=== PATIENT | male | born 1965 | race Caucasian/White ===

== ENCOUNTER 2018-03-07 20:00 | Inpatient (IN) | payer MEDICAID ==
[~2018-03-07] VITALS: Ht 165.1 cm; Wt 65.5 kg
--- NOTE | ~2018-03-07 | EC ---
PATIENT:MCKAYLA LEE JR DATE OF SERVICE: 03/07/18 SEX: M MEDICAL RECORD: [id number] DATE OF : [birth year] LOCATION:[facility] [facility] AGE OF PATIENT: 52 ADMISSION DATE: 03/07/18 REFERRING PHYSICIAN: INTERPRETING PHYSICIAN: MAURIZIO MENSAH MD ECHOCARDIOGRAM REPORT ECHO CHARGES 4 ECHO COMPLETE Date: 03/09 CLINICAL DIAGNOSIS: CHF HX OF ICD ECHOCARDIOGRAPHIC MEASUREMENTS (adult normal given) AC root (d.<3.7cm) 4.1 cm LV Septum d (<1.2 cm> 1.4 cm Valve Excursion 1.9 cm LV Septum (systole) 1.6 cm Left Atria (s.<4.0cm> 3.0 cm LVPW d(<1.2cm) 1.4 cm RV (d.<2.3cm) 7.9 cm LVPW (sytole) 1.6 cm LV diastole(<5.6CM) 3.6 cm MV E-F(>70mm/sec) cm LV systole 2.1 cm LVOT Diameter 1.8 cm MV exc.(>10mm) cm Est.ejection fraction (50-75%) % DOPPLER: LVIT cm/sec A 45.0 cm/sec E 56.0 cm/sec LA cm/sec RVSP 53 mmHg LVOT cm/sec AOP1/2T m/s Asc. 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 Mensah TAPE# PACS Pericardial Effusion Y DATE OF SERVICE: 03/09/2018 ECHOCARDIOGRAM FINDINGS: 1. Left ventricular chamber size is within normal limits. Left ventricular systolic function is normal. Overall ejection fraction estimated at 50% to 55%. 2. The left atrium is mildly dilated at 4.2 cm. Right atrium and right ventricular chamber sizes are severely dilated. 3. Valvular structures have normal structure and motion. ECHOCARDIOGRAM REPORT [id number] MCKAYLA LEE JR 4. Doppler interrogation reveals mild mitral regurgitation, severe tricuspid regurgitation. No other valvular insufficiency or stenosis. Pulmonary systolic pressure is elevated estimated at 53 mmHg. 5. Small pericardial effusion is present. This is not hemodynamically significant. No evidence of left ventricular thrombus. TRANSINT:[id number] Voice Confirmation ID: [id number] DOCUMENT ID: [id number] MAURIZIO MENSAH MD at 0956 CC: [id number] DICTATION DATE: 03/09/18 1336 CLINICAL RESEARCH COORDINATOR: 03/09/18 1828 ADM IN [facility] [address] [place] [address]
[2018-03-07 19:00] VITALS: BP 102/66
[2018-03-07] MEDS ORDERED: FLORINEF 0.1 M0.1 MG PO (20:34)
[2018-03-07] MEDS ORDERED: K-DUR20 MEQ PO (20:35)
[2018-03-07] MEDS ORDERED: LASIX20 MG PO (20:36)
[2018-03-07] MEDS ORDERED: BAYER CHEWABLE81 MG PO (20:36)
[2018-03-07] MEDS ORDERED: COREG12.5 MG PO (21:08)
[2018-03-07] MEDS ORDERED: FUROSEMIDE40 MG PO (21:08)
[2018-03-07] MEDS ORDERED: BUMEX2 MG PO (21:08)
[2018-03-07] MEDS ORDERED: ATARAX 25 MG TA25 MG PO (21:09)
[2018-03-07] MEDS ORDERED: SYNTHROID25 MCG PO (21:09)
[2018-03-07] MEDS ORDERED: ALDACTONE25 MG PO (21:10)
[2018-03-07] MEDS ORDERED: MAG-OX 400 MG400 MG PO (21:10)
[2018-03-07] MEDS ORDERED: CARAFATE1 G PO (21:11)
[2018-03-07] MEDS ORDERED: AZULFIDINE500 MG PO (21:11)
[2018-03-07] MEDS ORDERED: CEFTRIAXONE1 G/VIAL IM (21:12)
[2018-03-07] MEDS ORDERED: ACETAMINOPHEN500 M1 PO (21:13)
[2018-03-07] MEDS ORDERED: COLACE100 MG PO (21:14)
[2018-03-07] MEDS ORDERED: MYLANTA II SUSP30 ML PO (21:14)
[2018-03-07] MEDS ORDERED: LISINOPRIL10 MG PO (21:15)
[2018-03-07] MEDS ORDERED: METOLAZONE5 MG PO (21:16)
[2018-03-07] MEDS ORDERED: MILK OF MAGNESI30 ML PO (21:16)
[2018-03-07] MEDS ORDERED: PROAIR HFA8.5 GM INH (21:33)
[2018-03-08] VITALS (7 sets, daily range): BP systolic 94–117; BP diastolic 42–84; BMI 31.1
[2018-03-08 15:49] LABS: BASOPHILS 0.3 % (0-2); EOSINOPHILS 0.3 % (0-7); HEMATOCRIT 40.2 % (42.0-54.0); HEMOGLOBIN 12.5 g/dL (13.5-17.5); IMMATURE GRANULOCYTES 0.2 % (0-5); LYMPHOCYTES 5.8 % (15-50); MCHC 31.1 g/dL (31.0-37.0); MCV 90.1 fL (80.0-100.0); MEAN PLATELET VOLUME 9.8 fL (7.4-10.4); MONOCYTES 15.8 % (2-11); NEUTROPHILS 77.6 % (40-80); PLATELET COUNT 300 10x3/uL (130-400); RBC 4.46 10x6/uL (4.20-6.10); RDW 17.2 % (11.5-14.5); WBC 9.9 10x3/uL (4.8-10.8)
[2018-03-08 15:51] LABS: INR 1.29 (0.85-1.17); PROTIME 15.7 SECONDS (11.6-15.0)
[2018-03-08 15:52] LABS: APTT 31.4 SECONDS (22.8-39.4)
[2018-03-08 16:07] LABS: ALBUMIN 2.9 g/dL (3.4-5.0); BILIRUBIN - TOTAL 1.05 mg/dL (0.2-1.3); CALCIUM 8.1 mg/dL (8.5-10.1); MAGNESIUM - SERUM 1.9 mg/dL (1.8-2.4); POTASSIUM - SERUM 4.9 mmol/L (3.5-5.1); PROTEIN - SERUM 6.2 g/dL (6.4-8.2); THYROID STIMULATING HORMONE 3.62 uIU/mL (0.36-3.74)
[2018-03-08 16:08] LABS: ANION GAP 4.7 mmol/L (8-16); CARBON DIOXIDE 43.2 mmol/L (21.0-32.0)
[2018-03-08 18:36] LABS: APPEARANCE CLOUDY (CLEAR); BILIRUBIN NEGATIVE (NEGATIVE); COLOR AMBER (YELLOW); GLUCOSE NEGATIVE (NEGATIVE); KETONE NEGATIVE (NEGATIVE); NITRITE NEGATIVE (NEGATIVE); PROTEIN 1+ mg/dL (NEGATIVE); UROBILINOGEN NORMAL (NORMAL)
[2018-03-08 18:39] LABS: RED CELLS - URINE >50 /hpf (0-5); WHITE CELLS - URINE 0-5 /hpf (0-5)
[2018-03-08 18:41] LABS: BACTERIA MODERATE /hpf (NONE SEEN)
[2018-03-09] VITALS: BP 86/53
[2018-03-09 04:00] VITALS: BP 97/53
[2018-03-09 06:19] LABS: BASOPHILS 0.4 % (0-2); EOSINOPHILS 1.1 % (0-7); HEMATOCRIT 38.4 % (42.0-54.0); HEMOGLOBIN 11.8 g/dL (13.5-17.5); IMMATURE GRANULOCYTES 0.1 % (0-5); LYMPHOCYTES 11.7 % (15-50); MCH 27.7 pg (26.0-34.0); MCHC 30.7 g/dL (31.0-37.0); MCV 90.1 fL (80.0-100.0); MEAN PLATELET VOLUME 9.6 fL (7.4-10.4); MONOCYTES 14.7 % (2-11); PLATELET COUNT 260 10x3/uL (130-400); RBC 4.26 10x6/uL (4.20-6.10); RDW 17.1 % (11.5-14.5); WBC 7.4 10x3/uL (4.8-10.8)
[2018-03-09 06:41] LABS: CALCIUM 8.1 mg/dL (8.5-10.1); CARBON DIOXIDE 39.1 mmol/L (21.0-32.0); CREATININE - SERUM 1.7 mg/dL (0.6-1.3); POTASSIUM - SERUM 4.8 mmol/L (3.5-5.1)
[2018-03-09 06:45] LABS: ANION GAP 7.7 mmol/L (8-16)
[2018-03-09 09:53] VITALS: BP 92/60
[2018-03-09 12:49] VITALS: BP 90/55
[2018-03-09 16:30] VITALS: BP 92/57
[2018-03-09 20:00] VITALS: BP 95/69
[2018-03-10 01:00] VITALS: BP 95/57
[2018-03-10 05:00] VITALS: BP 92/59
[2018-03-10 06:06] LABS: BASOPHILS 0 % (0-2); EOSINOPHILS 0 % (0-7); HEMATOCRIT 40.3 % (42.0-54.0); HEMOGLOBIN 12.7 g/dL (13.5-17.5); IMMATURE GRANULOCYTES 0.2 % (0-5); MCH 28.3 pg (26.0-34.0); MCHC 31.5 g/dL (31.0-37.0); MCV 89.8 fL (80.0-100.0); MEAN PLATELET VOLUME 10.1 fL (7.4-10.4); MONOCYTES 4.5 % (2-11); NEUTROPHILS 90.3 % (40-80); PLATELET COUNT 242 10x3/uL (130-400); RBC 4.49 10x6/uL (4.20-6.10); RDW 16.7 % (11.5-14.5)
[2018-03-10 06:18] LABS: WBC 5.2 10x3/uL (4.8-10.8)
[2018-03-10 06:39] LABS: ALBUMIN 2.9 g/dL (3.4-5.0); BILIRUBIN - TOTAL 1.15 mg/dL (0.2-1.3); CALCIUM 8.1 mg/dL (8.5-10.1); CREATININE - SERUM 1.5 mg/dL (0.6-1.3); PHOSPHOROUS 4.8 mg/dL (2.5-4.9); POTASSIUM - SERUM 4.4 mmol/L (3.5-5.1); PROTEIN - SERUM 6.2 g/dL (6.4-8.2)
[2018-03-10 06:43] LABS: ANION GAP 4.1 mmol/L (8-16)
[2018-03-10 06:45] LABS: CARBON DIOXIDE 42.3 mmol/L (21.0-32.0)
[2018-03-10 08:30] VITALS: BP 109/53
[2018-03-10 11:28] VITALS: BP 98/73
[2018-03-10 15:45] VITALS: BP 104/39
[2018-03-10 20:29] VITALS: BP 104/66
[2018-03-11 01:05] VITALS: BP 100/67
[2018-03-11 05:58] VITALS: BP 103/77
[2018-03-11 06:41] LABS: BASOPHILS 0 % (0-2); EOSINOPHILS 0 % (0-7); HEMATOCRIT 38.2 % (42.0-54.0); HEMOGLOBIN 11.8 g/dL (13.5-17.5); IMMATURE GRANULOCYTES 0.2 % (0-5); LYMPHOCYTES 7.6 % (15-50); MCH 27.9 pg (26.0-34.0); MCHC 30.9 g/dL (31.0-37.0); MCV 90.3 fL (80.0-100.0); MEAN PLATELET VOLUME 9.6 fL (7.4-10.4); MONOCYTES 11.8 % (2-11); NEUTROPHILS 80.4 % (40-80); PLATELET COUNT 220 10x3/uL (130-400); RBC 4.23 10x6/uL (4.20-6.10); RDW 16.6 % (11.5-14.5); WBC 6.4 10x3/uL (4.8-10.8)
[2018-03-11 07:00] LABS: CALCIUM 8.8 mg/dL (8.5-10.1); CREATININE - SERUM 1.2 mg/dL (0.6-1.3); SODIUM 123 mmol/L (136-145); UREA NITROGEN 40 mg/dL (7-18); eGFR NON AFRICAN AMERICAN 67 mL/min (90-120)
[2018-03-11 07:05] LABS: CALC OSMOLALITY 258 mosm/kg (275-300); GLUCOSE 108 mg/dL (74-106); POTASSIUM - SERUM 3.6 mmol/L (3.5-5.1)
[2018-03-11 07:07] LABS: CARBON DIOXIDE 49.6 mmol/L (21.0-32.0); CHLORIDE - SERUM 78 mmol/L (98-107)
[2018-03-11 08:21] VITALS: BP 114/78
[2018-03-11 13:51] VITALS: BP 145/99
[2018-03-11 17:01] VITALS: BP 114/61
[2018-03-11 21:03] VITALS: BP 109/69
[2018-03-12 01:23] VITALS: BP 106/62
[2018-03-12 05:29] VITALS: BP 90/54
[2018-03-12 05:54] LABS: BASOPHILS 0 % (0-2); EOSINOPHILS 0 % (0-7); HEMOGLOBIN 11.6 g/dL (13.5-17.5); IMMATURE GRANULOCYTES 0.2 % (0-5); LYMPHOCYTES 4.9 % (15-50); MCH 28.2 pg (26.0-34.0); MCHC 31.4 g/dL (31.0-37.0); MEAN PLATELET VOLUME 9.7 fL (7.4-10.4); MONOCYTES 7.8 % (2-11); NEUTROPHILS 87.1 % (40-80); RBC 4.11 10x6/uL (4.20-6.10); RDW 17.1 % (11.5-14.5)
[2018-03-12 06:02] LABS: PLATELET COUNT 175 10x3/uL (130-400)
[2018-03-12 06:18] LABS: CALCIUM 8.6 mg/dL (8.5-10.1); GLUCOSE 107 mg/dL (74-106); POTASSIUM - SERUM 3.3 mmol/L (3.5-5.1); SODIUM 126 mmol/L (136-145); eGFR NON AFRICAN AMERICAN 83 mL/min (90-120)
[2018-03-12 06:27] LABS: CALC OSMOLALITY 258 mosm/kg (275-300); UREA NITROGEN 29 mg/dL (7-18)
[2018-03-12 06:28] LABS: CHLORIDE - SERUM 78 mmol/L (98-107)
[2018-03-12 10:15] VITALS: BP 113/74
[2018-03-12 12:31] VITALS: BP 111/76
[2018-03-12 18:21] VITALS: BP 99/56
[2018-03-12 20:54] VITALS: BP 126/81
[2018-03-13 01:59] VITALS: BP 119/77
[2018-03-13 05:57] VITALS: BP 138/83
[2018-03-13 06:24] LABS: CALCIUM 8.6 mg/dL (8.5-10.1); CREATININE - SERUM 0.9 mg/dL (0.6-1.3); GLUCOSE 87 mg/dL (74-106); POTASSIUM - SERUM 4.1 mmol/L (3.5-5.1); SODIUM 124 mmol/L (136-145); eGFR NON AFRICAN AMERICAN > 90 mL/min (90-120)
[2018-03-13 06:25] LABS: CALC OSMOLALITY 251 mosm/kg (275-300); UREA NITROGEN 21 mg/dL (7-18)
[2018-03-13 06:29] LABS: CARBON DIOXIDE 44.6 mmol/L (21.0-32.0); CHLORIDE - SERUM 82 mmol/L (98-107)
[2018-03-13 07:00] VITALS: BP 140/89
[2018-03-13 07:02] LABS: BASOPHILS 0.1 % (0-2); EOSINOPHILS 0 % (0-7); HEMATOCRIT 39.8 % (42.0-54.0); HEMOGLOBIN 12.3 g/dL (13.5-17.5); IMMATURE GRANULOCYTES 1.1 % (0-5); LYMPHOCYTES 8.9 % (15-50); MCH 28.2 pg (26.0-34.0); MCHC 30.9 g/dL (31.0-37.0); MCV 91.3 fL (80.0-100.0); MEAN PLATELET VOLUME 10.8 fL (7.4-10.4); MONOCYTES 15.7 % (2-11); NEUTROPHILS 74.2 % (40-80); PLATELET COUNT 177 10x3/uL (130-400); RBC 4.36 10x6/uL (4.20-6.10); RDW 17.1 % (11.5-14.5); WBC 7.2 10x3/uL (4.8-10.8)
[2018-03-13 13:38] VITALS: BP 136/91
[2018-03-13 13:40] LABS: CALC OSMOLALITY 261 mosm/kg (275-300); CALCIUM 8.5 mg/dL (8.5-10.1); CREATININE - SERUM 0.8 mg/dL (0.6-1.3); GLUCOSE 130 mg/dL (74-106); POTASSIUM - SERUM 3.6 mmol/L (3.5-5.1); SODIUM 128 mmol/L (136-145); UREA NITROGEN 20 mg/dL (7-18); VANCOMYCIN - TROUGH 39.5 ug/mL (10.0-20.0); eGFR NON AFRICAN AMERICAN > 90 mL/min (90-120)
[2018-03-13 13:49] LABS: CARBON DIOXIDE 48.3 mmol/L (21.0-32.0); CHLORIDE - SERUM 79 mmol/L (98-107)
[2018-03-13 17:12] VITALS: BP 137/90
[2018-03-13 20:00] VITALS: BP 135/82
[2018-03-14 01:00] VITALS: BP 129/89
[2018-03-14 04:30] VITALS: BP 153/89
[2018-03-14 06:43] LABS: BASOPHILS 0 % (0-2); EOSINOPHILS 0.4 % (0-7); HEMATOCRIT 42.8 % (42.0-54.0); HEMOGLOBIN 13.1 g/dL (13.5-17.5); IMMATURE GRANULOCYTES 0.1 % (0-5); LYMPHOCYTES 11.5 % (15-50); MCH 27.9 pg (26.0-34.0); MCHC 30.6 g/dL (31.0-37.0); MCV 91.3 fL (80.0-100.0); MEAN PLATELET VOLUME 9.2 fL (7.4-10.4); MONOCYTES 16.8 % (2-11); NEUTROPHILS 71.2 % (40-80); PLATELET COUNT 145 10x3/uL (130-400); RBC 4.69 10x6/uL (4.20-6.10); RDW 17.1 % (11.5-14.5); WBC 8.2 10x3/uL (4.8-10.8)
[2018-03-14 07:14] LABS: CALC OSMOLALITY 263 mosm/kg (275-300); CALCIUM 8.9 mg/dL (8.5-10.1); CREATININE - SERUM 0.9 mg/dL (0.6-1.3); GLUCOSE 89 mg/dL (74-106); MAGNESIUM - SERUM 1.4 mg/dL (1.8-2.4); PHOSPHOROUS 3.1 mg/dL (2.5-4.9); POTASSIUM - SERUM 3.3 mmol/L (3.5-5.1); SODIUM 131 mmol/L (136-145); UREA NITROGEN 19 mg/dL (7-18); eGFR NON AFRICAN AMERICAN > 90 mL/min (90-120)
[2018-03-14 07:28] LABS: CARBON DIOXIDE 48.2 mmol/L (21.0-32.0); CHLORIDE - SERUM 84 mmol/L (98-107)
[2018-03-14 08:59] VITALS: BP 115/76
[2018-03-14 12:00] VITALS: BP 128/83
[2018-03-14 12:59] VITALS: Ht 165.1 cm; Wt 65.5 kg
[2018-03-14 16:50] VITALS: BP 118/85
[2018-03-14 20:00] VITALS: BP 109/71
[2018-03-15 01:00] VITALS: BP 120/73
[2018-03-15 05:30] VITALS: BP 111/80
[2018-03-15 05:32] LABS: BASOPHILS 0 % (0-2); EOSINOPHILS 0 % (0-7); HEMOGLOBIN 12.2 g/dL (13.5-17.5); IMMATURE GRANULOCYTES 0.2 % (0-5); LYMPHOCYTES 8.3 % (15-50); MCH 27.9 pg (26.0-34.0); MCHC 30.5 g/dL (31.0-37.0); MCV 91.5 fL (80.0-100.0); MEAN PLATELET VOLUME 9.5 fL (7.4-10.4); MONOCYTES 10.9 % (2-11); NEUTROPHILS 80.6 % (40-80); PLATELET COUNT 145 10x3/uL (130-400); RBC 4.37 10x6/uL (4.20-6.10); RDW 17.2 % (11.5-14.5); WBC 8.3 10x3/uL (4.8-10.8)
[2018-03-15 05:35] LABS: CALC OSMOLALITY 268 mosm/kg (275-300); CALCIUM 8.6 mg/dL (8.5-10.1); CHLORIDE - SERUM 87 mmol/L (98-107); GLUCOSE 103 mg/dL (74-106); POTASSIUM - SERUM 3.1 mmol/L (3.5-5.1); SODIUM 133 mmol/L (136-145); UREA NITROGEN 21 mg/dL (7-18); eGFR NON AFRICAN AMERICAN 83 mL/min (90-120)
[2018-03-15 05:39] LABS: CARBON DIOXIDE 45.9 mmol/L (21.0-32.0)
[2018-03-15 08:54] VITALS: BP 132/72
[2018-03-15 12:33] VITALS: BP 102/72; BP 107/68
[2018-03-15 16:34] VITALS: BP 111/72
[2018-03-15 20:00] VITALS: BP 116/73
[2018-03-16 01:00] VITALS: BP 150/89
[2018-03-16 05:52] LABS: BASOPHILS 0 % (0-2); EOSINOPHILS 0 % (0-7); HEMATOCRIT 39.3 % (42.0-54.0); IMMATURE GRANULOCYTES 0.3 % (0-5); LYMPHOCYTES 8.7 % (15-50); MCH 27.7 pg (26.0-34.0); MCHC 30.5 g/dL (31.0-37.0); MCV 90.8 fL (80.0-100.0); MEAN PLATELET VOLUME 9.2 fL (7.4-10.4); MONOCYTES 9.8 % (2-11); NEUTROPHILS 81.2 % (40-80); PLATELET COUNT 126 10x3/uL (130-400); RBC 4.33 10x6/uL (4.20-6.10); RDW 17.5 % (11.5-14.5); WBC 8.7 10x3/uL (4.8-10.8)
[2018-03-16 06:11] VITALS: BP 136/85
[2018-03-16 06:14] LABS: CALC OSMOLALITY 273 mosm/kg (275-300); CALCIUM 8.9 mg/dL (8.5-10.1); CHLORIDE - SERUM 91 mmol/L (98-107); GLUCOSE 103 mg/dL (74-106); POTASSIUM - SERUM 3.1 mmol/L (3.5-5.1); SODIUM 135 mmol/L (136-145); UREA NITROGEN 25 mg/dL (7-18); eGFR NON AFRICAN AMERICAN 83 mL/min (90-120)
[2018-03-16 06:17] LABS: CARBON DIOXIDE 42.9 mmol/L (21.0-32.0)
[2018-03-16 09:04] VITALS: BP 104/73
[2018-03-16 11:35] VITALS: BP 110/77
[2018-03-16 15:36] VITALS: BP 118/84
[2018-03-16 20:00] VITALS: BP 106/63
[2018-03-17 01:00] VITALS: BP 124/87
[2018-03-17 05:00] VITALS: BP 125/72
[2018-03-17 05:11] LABS: BASOPHILS 0 % (0-2); EOSINOPHILS 0.8 % (0-7); HEMATOCRIT 41.6 % (42.0-54.0); HEMOGLOBIN 12.8 g/dL (13.5-17.5); IMMATURE GRANULOCYTES 0.3 % (0-5); LYMPHOCYTES 13.1 % (15-50); MCH 28.5 pg (26.0-34.0); MCHC 30.8 g/dL (31.0-37.0); MCV 92.7 fL (80.0-100.0); MEAN PLATELET VOLUME 9.8 fL (7.4-10.4); MONOCYTES 13.2 % (2-11); NEUTROPHILS 72.6 % (40-80); PLATELET COUNT 137 10x3/uL (130-400); RBC 4.49 10x6/uL (4.20-6.10); RDW 17.9 % (11.5-14.5)
[2018-03-17 05:51] LABS: CALC OSMOLALITY 272 mosm/kg (275-300); CALCIUM 8.8 mg/dL (8.5-10.1); CARBON DIOXIDE 37.5 mmol/L (21.0-32.0); CHLORIDE - SERUM 95 mmol/L (98-107); CREATININE - SERUM 0.8 mg/dL (0.6-1.3); GLUCOSE 79 mg/dL (74-106); POTASSIUM - SERUM 3.9 mmol/L (3.5-5.1); SODIUM 135 mmol/L (136-145); UREA NITROGEN 24 mg/dL (7-18); eGFR NON AFRICAN AMERICAN > 90 mL/min (90-120)
[2018-03-17 08:48] VITALS: BP 130/78
[2018-03-17 13:24] VITALS: BP 115/81
[2018-03-17 16:40] VITALS: BP 159/88
[2018-03-17 20:11] VITALS: BP 114/75
[2018-03-18] VITALS (7 sets, daily range): BP systolic 118–140; BP diastolic 78–85
[2018-03-18 05:40] LABS: BASOPHILS 0.1 % (0-2); EOSINOPHILS 0.6 % (0-7); HEMATOCRIT 41.6 % (42.0-54.0); HEMOGLOBIN 12.7 g/dL (13.5-17.5); IMMATURE GRANULOCYTES 0.5 % (0-5); LYMPHOCYTES 12.3 % (15-50); MCH 28.2 pg (26.0-34.0); MCHC 30.5 g/dL (31.0-37.0); MCV 92.4 fL (80.0-100.0); MEAN PLATELET VOLUME 9.6 fL (7.4-10.4); MONOCYTES 13.2 % (2-11); NEUTROPHILS 73.3 % (40-80); PLATELET COUNT 130 10x3/uL (130-400); RDW 17.8 % (11.5-14.5); WBC 10.1 10x3/uL (4.8-10.8)
[2018-03-18 05:57] LABS: CALC OSMOLALITY 275 mosm/kg (275-300); CALCIUM 9.2 mg/dL (8.5-10.1); CARBON DIOXIDE 39.5 mmol/L (21.0-32.0); CHLORIDE - SERUM 93 mmol/L (98-107); CREATININE - SERUM 0.9 mg/dL (0.6-1.3); GLUCOSE 80 mg/dL (74-106); POTASSIUM - SERUM 3.6 mmol/L (3.5-5.1); SODIUM 136 mmol/L (136-145); UREA NITROGEN 27 mg/dL (7-18); eGFR NON AFRICAN AMERICAN > 90 mL/min (90-120)
[2018-03-19 00:28] VITALS: BP 111/76
[2018-03-19 05:41] VITALS: BP 126/81
[2018-03-19 05:51] LABS: BASOPHILS 0.1 % (0-2); EOSINOPHILS 0.2 % (0-7); HEMATOCRIT 39.4 % (42.0-54.0); HEMOGLOBIN 12.4 g/dL (13.5-17.5); IMMATURE GRANULOCYTES 0.6 % (0-5); LYMPHOCYTES 13.3 % (15-50); MCH 28.5 pg (26.0-34.0); MCHC 31.5 g/dL (31.0-37.0); MCV 90.6 fL (80.0-100.0); MEAN PLATELET VOLUME 9.4 fL (7.4-10.4); MONOCYTES 13.9 % (2-11); NEUTROPHILS 71.9 % (40-80); PLATELET COUNT 150 10x3/uL (130-400); RBC 4.35 10x6/uL (4.20-6.10); RDW 17.6 % (11.5-14.5)
[2018-03-19 06:05] LABS: CALC OSMOLALITY 273 mosm/kg (275-300); CALCIUM 9.3 mg/dL (8.5-10.1); CARBON DIOXIDE 38.4 mmol/L (21.0-32.0); CHLORIDE - SERUM 93 mmol/L (98-107); CREATININE - SERUM 0.8 mg/dL (0.6-1.3); GLUCOSE 89 mg/dL (74-106); POTASSIUM - SERUM 3.4 mmol/L (3.5-5.1); SODIUM 135 mmol/L (136-145); UREA NITROGEN 27 mg/dL (7-18); eGFR NON AFRICAN AMERICAN > 90 mL/min (90-120)
[2018-03-19 09:16] VITALS: BP 127/89
[2018-03-19 12:54] VITALS: BP 118/75
[2018-03-19 17:05] VITALS: BP 127/81
[2018-03-19 21:25] VITALS: BP 122/68
[2018-03-20 00:50] VITALS: BP 109/72
[2018-03-20 04:50] VITALS: BP 119/74
[2018-03-20 05:56] LABS: BASOPHILS 0.1 % (0-2); EOSINOPHILS 0.4 % (0-7); HEMATOCRIT 39.8 % (42.0-54.0); HEMOGLOBIN 12.5 g/dL (13.5-17.5); IMMATURE GRANULOCYTES 0.8 % (0-5); LYMPHOCYTES 16.1 % (15-50); MCH 28.5 pg (26.0-34.0); MCHC 31.4 g/dL (31.0-37.0); MCV 90.9 fL (80.0-100.0); MEAN PLATELET VOLUME 9.5 fL (7.4-10.4); MONOCYTES 13.2 % (2-11); NEUTROPHILS 69.4 % (40-80); PLATELET COUNT 165 10x3/uL (130-400); RBC 4.38 10x6/uL (4.20-6.10); WBC 10.6 10x3/uL (4.8-10.8)
[2018-03-20 06:06] LABS: CALC OSMOLALITY 277 mosm/kg (275-300); CALCIUM 8.5 mg/dL (8.5-10.1); CARBON DIOXIDE 38.9 mmol/L (21.0-32.0); CHLORIDE - SERUM 94 mmol/L (98-107); CREATININE - SERUM 0.8 mg/dL (0.6-1.3); GLUCOSE 81 mg/dL (74-106); POTASSIUM - SERUM 3.6 mmol/L (3.5-5.1); SODIUM 137 mmol/L (136-145); UREA NITROGEN 26 mg/dL (7-18); eGFR NON AFRICAN AMERICAN > 90 mL/min (90-120)
[2018-03-20 08:08] VITALS: BP 126/82
[2018-03-20] MEDS ORDERED: VIBRAMYCIN 100100 MG PO (09:37)
[2018-03-20] MEDS ORDERED: PULMICORT0.5 MG/21 UPD (09:39)
[2018-03-20] MEDS ORDERED: DALIRESP500 MCG PO (09:39)
[2018-03-20] MEDS ORDERED: SINGULAIR10 MG PO (09:39)
[2018-03-20] MEDS ORDERED: MUCINEX DM ER1 EAC1 PO (09:39)
[2018-03-20] MEDS ORDERED: PROTONIX40 MG PO (09:40)
[2018-03-20] MEDS ORDERED: MIRALAX17 GM PO (09:40)
[2018-03-20 11:06] VITALS: BP 131/95
== END 2018-03-20 12:34 | DRG 177 ==
LOC: D.M2 20:00
PROVIDERS: Internal Medicine Nephrology; Internal Medicine Pulmonary Disease
PROC: 5A09457 Assistance with Respiratory Ventilation, 24-96 Consecutive Hours, Continuous Positive Airway Pressure (ICD-10-PCS; principal; 2018-03-09)
DX: J15.6 Pneumonia due to other Gram-negative bacteria (principal); I50.23 Acute on chronic systolic (congestive) heart failure; J96.22 Acute and chronic respiratory failure with hypercapnia; J96.21 Acute and chronic respiratory failure with hypoxia; I13.0 Hypertensive heart and chronic kidney disease with heart failure and stage 1 through stage 4 chronic kidney disease, or unspecified chronic kidney disease; E87.1 Hypo-osmolality and hyponatremia; N17.9 Acute kidney failure, unspecified; N39.0 Urinary tract infection, site not specified; J44.0 Chronic obstructive pulmonary disease with (acute) lower respiratory infection; J98.11 Atelectasis; K51.90 Ulcerative colitis, unspecified, without complications; J15.212 Pneumonia due to Methicillin resistant Staphylococcus aureus; N18.3 Chronic kidney disease, stage 3 (moderate); K59.09 Other constipation; Z87.891 Personal history of nicotine dependence; S00.83XA Contusion of other part of head, initial encounter; W06.XXXA Fall from bed, initial encounter; Y92.122 Bedroom in nursing home as the place of occurrence of the external cause; E87.5 Hyperkalemia; K62.3 Rectal prolapse; I08.1 Rheumatic disorders of both mitral and tricuspid valves; Z99.81 Dependence on supplemental oxygen; E03.9 Hypothyroidism, unspecified; Z95.0 Presence of cardiac pacemaker; E87.6 Hypokalemia; I27.20 Pulmonary hypertension, unspecified